=== PATIENT | female | born 1945 | race African-American/Black ===

== ENCOUNTER 2017-11-19 13:47 | Inpatient (IN) | payer MEDICARE, MEDICAID ==
--- NOTE | 2017-11-19 14:44 | RAD ---
CHEST 1 VIEW: Date: 11/19/17 HISTORY: Dyspnea. New onset atrial fibrillation with RVR. FINDINGS: Normal cardiac silhouette. Pulmonary vessels and hilum are normal. Bibasilar pleural and parenchymal changes. No pneumothorax or osseous abnormalities. IMPRESSION: Bibasilar pleural and parenchymal changes. POS: [facility]
[2017-11-19 14:58] LABS: INR-International Normal Ratio 1.8; PTT 25.6 SEC (22.9-36.1); Prothrombin Time 21.8 SEC (12.0-14.7)
[2017-11-19] MEDS ORDERED: Enoxaparin Sodium 60 MG/0.6 ML SYRINGE ONE (15:20)
[2017-11-19 15:21] LABS: ALT (SGPT) 1388 U/L (8-55); AST (SGOT) 1121 U/L (5-34); Albumin 3.7 g/dL (3.4-4.8); Alkaline Phosphatase 119 U/L (40-150); Anion Gap 18 mmol/L (10-20); BUN (Urea Nitrogen) 29 mg/dL (9.8-20.1); Bilirubin, Total 2.2 mg/dL (0.2-1.2); Calc. Creatinine Clearance 0 mL/min (70-130); Calcium 9.4 mg/dL (7.8-10.44); Carbon Dioxide 21 mmol/L (23-31); Chloride 94 mmol/L (98-107); Estimated GFR-MDRD 56; Globulin 2.9 g/dL (2.4-3.5); Glucose 157 mg/dL (83-110); Potassium 3.4 mmol/L (3.5-5.1); Protein, Total 6.6 g/dL (6.0-8.3); Sodium 130 mmol/L (136-145)
[2017-11-19 15:23] LABS: CKMB 5.8 ng/mL (0-6.6); Troponin I 0.159 ng/mL (< 0.028)
[2017-11-19] MEDS ORDERED: Furosemide 40 MG/4 ML VIAL ONE (17:55)
[2017-11-19 19:19] LABS: Troponin I 0.185 ng/mL (< 0.028)
[2017-11-19] MEDS ORDERED: Acetaminophen 325 MG TAB PO PRN (20:32)
[2017-11-19] MEDS ORDERED: Ondansetron ODT 4 MG TAB SL PRN (20:32)
[2017-11-19] MEDS ORDERED: Ondansetron HCl/PF 4 MG/2 ML Vial IVP PRN (20:32)
[2017-11-19 20:35] VITALS: BMI 22.6
[2017-11-19 21:23] LABS: Troponin I 0.184 ng/mL (< 0.028)
[2017-11-20] MEDS: Diltiazem 125 MG in Sodium Chloride 0.9% 100 ML IVPB SCH ×2 (05:54→18:14)
[2017-11-20] MEDS ORDERED: Acetaminophen 325 MG TAB PO PRN (10:17)
[2017-11-20] MEDS ORDERED: Guaifenesin DM 100-10/5 ML UDCUP PO PRN (10:17)
[2017-11-20] MEDS ORDERED: Senokot 8.6 MG TAB PO PRN (10:17)
[2017-11-20] MEDS ORDERED: Enoxaparin Sodium 30 MG/0.3 ML SYRINGE SC SCH (11:00)
[2017-11-20] MEDS: Enoxaparin Sodium 60 MG/0.6 ML SYRINGE SC SCH ×2 (11:03→22:27)
[2017-11-20 12:21] LABS: Hemoglobin A1c 5.4 % (4.0-6.0)
--- NOTE | 2017-11-20 12:36 | HP ---
REASON FOR ADMISSION: New onset atrial fibrillation with RVR, CHF exacerbation , uncontrolled hypertension. HISTORY OF PRESENT ILLNESS: The patient gives history of shortness of breath from last 3 days. She has also been having nausea, vomiting, and could not keep anything down. She developed chest discomfort in the retrosternal area. She initially thought it might be a virus infection or asthma acting up. Finally, this got worse, and patient made it to the emergency room. No prior cardiac workup. No history of asthma or COPD. Has never smoked in her life. Her last annual physical exam was nearly 8 years ago. The patient says she lives alone and ambulates by herself. PAST MEDICAL AND SURGICAL HISTORY: Dyslipidemia, not on any medication; has had a left lobe of her thyroid removed 30 years ago. No prior surgical history. No prior colonoscopy or current bleeding per rectum. CURRENT MEDICATIONS: P.r.n. allergy medications. ALLERGIES: No known drug allergies. PERSONAL HISTORY: Does not abuse alcohol or drugs. No history of smoking. She lives by herself, has 3 children, two daughters and one son. Patient ambulates by herself and lives alone. FAMILY HISTORY: Mother is healthy and lives in [place]. Father in his 50s from a motor vehicle accident. CODE STATUS: FULL. Power of commercial real estate attorney is her daughter, her name is Evie Badillo. REVIEW OF SYSTEMS: The following complete review of systems was negative, unless otherwise mentioned in the HPI or below: Constitutional: Weight loss or gain, ability to conduct usual activities. Skin: Rash, itching. Eyes: Double vision, pain. ENT/Mouth: Nose bleeding, neck stiffness, pain, tenderness. Cardiovascular: Palpitations, dyspnea on exertion, orthopnea. Respiratory: Shortness of breath, wheezing, cough, hemoptysis, fever or night sweats. Gastrointestinal: Poor appetite, abdominal pain, heartburn, nausea, vomiting, constipation, or diarrhea. Genitourinary: Urgency, frequency, dysuria, nocturia. Musculoskeletal: Pain, swelling. Neurologic/Psychiatric: Anxiety, depression. Allergy/Immunologic: Skin rash, bleeding tendency. PHYSICAL EXAMINATION: GENERAL: The patient is a 72-year-old female who is currently not in any acute distress. VITAL SIGNS: Blood pressure 170/117 on arrival, pulse 112 on arrival, respiratory rate 18 per minute, temperature 98.4 degrees Fahrenheit, saturating 95% on room air. NECK: Supple, no elevated JVD. HEENT: Extraocular muscles intact. Pupils reacting to light. Oral cavity mucous membranes are moist. No exudates or congestion. CARDIOVASCULAR SYSTEM: S1, S2 heard. Irregular rhythm. RESPIRATORY SYSTEM: Air entry 1+ bilateral. Scattered rales in the infrascapular area. ABDOMEN: Soft, bowel sounds heard. No tenderness, rigidity or guarding. EXTREMITIES: No peripheral edema or calf tenderness. VASCULAR SYSTEM: Peripheral pulses 1+ bilateral, no ischemic ulcerations or gangrene. CENTRAL NERVOUS SYSTEM: No gross focal deficits seen. Patient is alert, awake , and oriented well. PSYCHIATRIC SYSTEM: The patient's mood is euthymic. No hallucinations or delusions. LABORATORY AND X-RAY FINDINGS: Sodium 130, potassium 3.4, serum bicarbonate 21 , BUN 29, creatinine 1.1, serum glucose 157. PT is 21, INR 1.8, PTT 25. Troponin I 0.15, peaking up to 0.18. CK-MB is 5.8, AST 1121, ALT 1388, total bilirubin 2.2. BNP is 4341. Serum glucose is 157. Chest x-ray done shows pulmonary vascular congestion. EKG done shows atrial fibrillation with RVR going up to 110. There are signs of LVH and T inversions seen in V4, V5, V6. CLINICAL IMPRESSION AND PLAN: The patient will be admitted to telemetry for new onset atrial fibrillation with CHF exacerbation and demand ischemia. Also, patient's LFTs are elevated. It is unclear if this is due to passive congestion from CHF. The patient has no right upper quadrant pain. Nevertheless, we will obtain ultrasound of the liver. Echo with 2D Doppler. She is currently on a Cardizem drip and the her atrial fibrillation is rate controlled in the 80s and we will continue the same. The patient does not take any anticoagulation despite this, her INR is 1.8. We will continue her on Lovenox 50 mg subcu q.12 hours for afib. We will obtain acute hepatitis panel. She will be on Lasix 40 mg IV q.12 hourly. A small dose of Coreg, aspirin, and lisinopril. I have discussed with Dr. Johnson, who will be seeing patient for Cardiology consultation. We will continue to closely monitor her on telemetry. [facility]ITALRaquel
[2017-11-20 12:48] LABS: #Lymphocytes 1.4 thou/uL (1.20-3.40); %Basophils 0.2 % (0.0-1.0); %Eosinophils 0.3 % (0.0-10.0); %Lymphocytes 13.4 % (21.0-51.0); %Monocytes 9.6 % (0.0-10.0); %Neutrophils 76.4 % (42.0-75.0); Hemoglobin 13.8 g/dL (12.0-16.0); Mean Corpuscular Hemoglobin 29.6 pg (27.0-31.0); Mean Corpuscular Volume 89.6 fl (81.0-99.0); Mean Platelet Volume 8.9 fL (7.4-10.4); Platelet Count 211 thou/uL (130-400); RBC Distribution Width 14.4 % (11.5-14.5); Red Blood Cell (RBC) Count 4.65 mill/uL (4.20-5.40); White Blood Cell (WBC) Count 10.5 thou/uL (4.8-10.8)
[2017-11-20 13:31] LABS: HBCM Index 0.04 S/CO (0-0.79); HBSAg Index 0.25 S/CO (0-0.99); Hep A IgM AB Non-Reactive (NonReactive); Hep A IgM S/CO 0.08 S/CO (0-0.79); Hep B Surf Ag Non-Reactive S/CO (NonReactive); Hep C IgG Ab Non-Reactive (NonReactive); Hep C Index 0.07 S/CO (0-0.79); Hepatitis B Core IGM Abs Non-Reactive (NonReactive)
[2017-11-20] MEDS: Furosemide 40 MG/4 ML VIAL SLOW IVP SCH (14:18)
--- NOTE | 2017-11-20 14:46 | CON ---
DATE OF CONSULTATION: 11/20/2017 CARDIOLOGY CONSULTATION REASON FOR CONSULTATION: New onset atrial fibrillation and heart failure. HISTORY OF PRESENT ILLNESS: Ms. Renteria is a very pleasant 72-year-old -[place] female who c omes to the hospital for increased shortness of breath. She was noted for the last 3 days, she has b een increasingly getting more short of breath to the point where she could not breathe yesterday, she felt she was drowning. She came in and was found to be in heart failure and pulmonary edema. She w as also found to be in atrial fibrillation RVR, heart rate in the 120s. She was started on diltiazem drip and rate controlled and given IV Lasix and has diuresed some and is feeling much better today. Currently, she is on room air. Her shortness of breath is much better. Cardiology is being consult ed for further evaluation of her heart failure and her atrial fibrillation. PAST MEDICAL HISTORY: Hyperlipidemia. PAST SURGICAL HISTORY: Left thyroid lobe removal, 30 years ago. OUTPATIENT MEDICATIONS: None. Only p.r.n. over [id number] allergy medications. ALLERGIES: No known drug allergies. SOCIAL HISTORY: No alcohol, tobacco or drugs. Lives with herself. She has 3 kids, 2 daughters and a son. The daughter who lives in [place] is with her today. FAMILY HISTORY: Healthy mother and father in his 50s from a motor vehicle accident. REVIEW OF SYSTEMS: A 12-point review of systems was done and is all negative unless stated in the his tory of present illness. PHYSICAL EXAMINATION: VITAL SIGNS: Temperature 98.0, pulse 74, respiratory rate 14, satting 96% on room air, blood pressur e 143/82. GENERAL: Awake, alert, oriented x3, in no distress. HEENT: Normocephalic, atraumatic. NECK: Supple. LUNGS: Clear. CARDIOVASCULAR: S1, S2, irregularly irregular, heart rate in the low 90s. No murmurs or rubs. ABDOMEN: Soft, positive bowel sounds. EXTREMITIES: 1+ edema. SKIN: Warm and dry. LABORATORY DATA AND IMAGING DATA: Laboratory work was reviewed. CBC with white count of 10, hemoglo bin 13.8, hematocrit 41, platelet count of 211. Coags were reviewed. Chemistry with sodium of 130, potassium 3.4, chloride of 94, carbon dioxide 21, anion gap of 18, BUN 29, creatinine 1.16, GFR 56, g lucose of 157, calcium 9.4, total bilirubin 2.2, AST 1121, and ALT 1388. Troponin was 0.15, 0.18 and 0.18. BNP was 4341. Chest x-ray showed bibasilar pleural and parenchymal changes suggestive of pulmonary edema. ASSESSMENT AND PLAN: 1. Atrial fibrillation with rapid ventricular response: New onset. She has not seen a physician in the last 8 years and in the past it was just for small issues. She has never really followed up wit h anyone. Her CHADS-VASc score at this point because of aged female, history of hypertension, and he art failure is about 4, so she would be a candidate for full anticoagulation. Agree with Lovenox ful l dose at current dosage. We will get an echocardiogram, which is already pending to assess her LV f unction and valvular structures. 2. New onset heart failure: Most likely systolic, suggested by her pulmonary edema and hepatic nain estion. Awaiting echocardiogram for further therapies. 3. Hypertension, better controlled. Continue beta farhat and DAGO inhibitor. 4. Further recommendation depending on results of echocardiogram. Thank you for letting us to participate in the care of this patient.
--- NOTE | 2017-11-20 15:03 | ULT ---
ABDOMINAL ULTRASOUND: HISTORY: Elevated LFTs. FINDINGS: The liver demonstrates a homogeneous echotexture without focal mass or intrahepatic ductal dilatation . The spleen measures 5.7 cm in length. The kidneys and visualized portions of the pancreas, abdomi nal aorta, and IVC appear normal. The common duct measures 3 mm in diameter. There is comet tail ar tifact in the gallbladder with an adjacent mass like area, measuring 1.9 x 1.8 x 1.3 cm. No free flu id is seen. Incidental note is made of bilateral pleural effusions, right greater than left. IMPRESSION: 1. Adenomyomatosis of the gallbladder with findings suspicious for an associated gallbladder mass. A surgical consultation is recommended. 2. Bilateral pleural effusions, right greater than left. CODE T POS: [facility]
[2017-11-20] MEDS: Famotidine 20 MG TAB PO SCH (20:22)
[2017-11-20] MEDS: Carvedilol 3.125 MG TAB PO SCH (20:22)
--- NOTE | 2017-11-21 05:05 | HP ---
HISTORY OF PRESENT ILLNESS: Jana Pelayo 72-year-old black female admitted for chest pain, found to be in AFib, RVR, admitted by hospitalist on telemetry. Her liver chemistries are elevated and then g allbladder ultrasound obtained revealed normal liver texture without abnormalities, normal spleen, pa ncreas, aorta, and IVC with common duct 3 mm. There is some artifact in the gallbladder with adjacen t mass-like area measuring 1.9 x 1.8 x 1.3 cm. No free fluid. There are bilateral pleural effusions , right greater than left. There is adenomyomatosis of the gallbladder with findings suspicious for an associated gallbladder mass. Surgery consult was recommended. Hepatitis serology obtained was ne gative. White count 10, hemoglobin 13.8. Sodium 130, BUN 29, creatinine 1.16. Hemoglobin A1c 5.4. Bilirubin 2.2, AST 1121, ALT 1388, alkaline phosphatase 119. The patient denies any biliary symptoms. She has not had any abdominal pain or biliary symptoms in t he past. BNP is elevated at 4341. Echocardiogram is ordered and pending. She has been anticoagulat ed with Lovenox therapeutically. Cardiology consultation with Dr. Johnson submitted and pending. ALLERGIES: None. TOBACCO: None. ALCOHOL: None. MEDICATIONS: None. PAST SURGICAL HISTORY: Noncontributory. PAST MEDICAL HISTORY: Noncontributory. SOCIAL HISTORY: The patient has never had a colonoscopy. She denies past history of chest pain. Sh stephon is healthy. She lives alone. She is retired from . She has never had a colonoscopy. She re ports a mammogram about 10 years ago. PHYSICAL EXAMINATION: VITAL SIGNS: Height 4 feet, weight 112 pounds, 22 BMI, temperature 97.4 degrees, pulse 78, respirato ry rate 16, and blood pressure 127/64. HEAD, EARS, EYES, NOSE, AND THROAT: Unremarkable. LUNGS: Clear to auscultation. CARDIAC: Irregularly irregular. ABDOMEN: Soft, flat, nondistended, nontender, no masses palpable. EXTREMITIES: Unremarkable. No ankle edema. ASSESSMENT AND PLAN: 1. Elevated liver function tests with negative hepatitis serology and gallbladder ultrasound is norm al without stones, but with adenomyomatosis and suggestive of small mass less than 1.8 cm. Liver fun ction tests were elevated, but common bile duct is not dilated. There are no changes to suggest obst ructive biliary disease. With her elevated BNP and elevated liver function tests, and onset of her m ild upper abdominal discomfort associated with this episode of chest pain, more likely this represent s liver congestion. This is associated with her pulmonary effusion seen on x-ray, and ultrasound sug gests that the liver chemistry elevation is due to liver congestion. Echocardiogram is pending. At this point, no surgical intervention is necessary. I would recommend a CAT scan of the abdomen and p fredo once her renal function normalize. 2. Chronic kidney disease versus acute kidney injury related to her cardiac event. Trend her renal function and consider CAT scan of abdomen and pelvis in the next few days if renal function normalize s and after cardiac evaluation. She probably would benefit from ultrasound of her gallbladder in the next 3 months to follow the changes seen on current ultrasound, if CAT scan does not warrant more ac robinson evaluation. 3. The patient has never had a colonoscopy, recommend screening colonoscopy as an outpatient. 4. The patient is due for screening mammography.
[2017-11-21 05:53] LABS: #Lymphocytes 2.1 thou/uL (1.20-3.40); #Monocytes 1.2 thou/uL (0.11-0.59); #Neutrophils 7.7 thou/uL (1.40-6.50); %Basophils 0.1 % (0.0-1.0); %Eosinophils 0.3 % (0.0-10.0); %Lymphocytes 18.6 % (21.0-51.0); %Monocytes 11.1 % (0.0-10.0); %Neutrophils 69.9 % (42.0-75.0); Hemoglobin 11.9 g/dL (12.0-16.0); Mean Corpuscular HGB CONC 33.1 g/dL (32.0-36.0); Mean Corpuscular Hemoglobin 30.2 pg (27.0-31.0); Mean Platelet Volume 8.3 fL (7.4-10.4); Platelet Count 199 thou/uL (130-400); RBC Distribution Width 14.5 % (11.5-14.5); Red Blood Cell (RBC) Count 3.95 mill/uL (4.20-5.40)
[2017-11-21 06:02] LABS: Anion Gap 10 mmol/L (10-20); BUN (Urea Nitrogen) 20 mg/dL (9.8-20.1); Calc. Creatinine Clearance 48 mL/min (70-130); Calcium 8.1 mg/dL (7.8-10.44); Carbon Dioxide 29 mmol/L (23-31); Chloride 98 mmol/L (98-107); Estimated GFR-MDRD 78; Glucose 138 mg/dL (83-110); Sodium 134 mmol/L (136-145)
[2017-11-21 06:04] LABS: ALT (SGPT) 922 U/L (8-55); AST (SGOT) 341 U/L (5-34); Alkaline Phosphatase 96 U/L (40-150); Bilirubin, Direct 0.8 mg/dL (0.1-0.3); Bilirubin, Total 1.9 mg/dL (0.2-1.2); Protein, Total 5.6 g/dL (6.0-8.3)
[2017-11-21 06:10] LABS: Potassium 2.6 mmol/L (3.5-5.1)
[2017-11-21] MEDS ORDERED: Potassium Chloride 20 MEQ TAB PO SCH ×2 (06:30→19:15)
[2017-11-21] MEDS: Potassium Chloride 20 MEQ in Premix Bag 1 BAG IVPB SCH ×2 (06:32→08:25)
[2017-11-21] MEDS: Diltiazem 125 MG in Sodium Chloride 0.9% 100 ML IVPB SCH (06:32)
[2017-11-21] MEDS: Furosemide 40 MG/4 ML VIAL SLOW IVP SCH ×2 (08:25→15:30)
[2017-11-21] MEDS: Aspirin 325 MG TAB PO SCH (08:25)
[2017-11-21] MEDS: Carvedilol 3.125 MG TAB PO SCH ×2 (08:25→20:12)
[2017-11-21] MEDS: Enoxaparin Sodium 60 MG/0.6 ML SYRINGE SC SCH ×2 (08:26→20:14)
[2017-11-21] MEDS: Lisinopril 2.5 MG TAB PO SCH (08:26)
[2017-11-21 08:55] LABS: INR-International Normal Ratio 1.4; PTT 31.6 SEC (22.9-36.1); Prothrombin Time 17.7 SEC (12.0-14.7)
[2017-11-21 11:12] LABS: Hemoglobin 12.7 g/dL (12.0-16.0); Platelet Count 200 thou/uL (130-400)
--- NOTE | 2017-11-21 13:18 | PDOC.PN ---
- Subjective Encounter Start Date: 11/21/17 Encounter Start Time: 08:15 Subjective: no sob, feels better -: no abd pain or palp or chest pain - Objective Resuscitation Status: Resuscitation Status FULL:Full Resuscitation MAR Reviewed: Yes Vital Signs & Weight: Vital Signs (12 hours) Temp Pulse Resp BP Pulse Ox 11/21/17 11:20 97.6 F 63 16 110/77 95 11/21/17 08:23 97.7 F 61 16 98 11/21/17 08:21 97.7 F 61 16 132/78 98 11/21/17 04:23 97.2 F L 59 L 14 121/85 96 Weight Weight 112 lb I&O: 11/20/17 11/21/17 11/22/17 06:59 06:59 06:59 Intake Total 230 1319 Output Total 1350 1850 Balance -1120 -531 Result Diagrams: 11/21/17 10:44 11/21/17 10:44 Phys Exam - Physical Examination HEENT: PERRLA, moist MMs Neck: no JVD, supple Respiratory: no wheezing, no rales Cardiovascular: no significant murmur, irregular Gastrointestinal: soft, non-tender, no distention, positive bowel sounds Musculoskeletal: no edema, pulses present Neurological: non-focal, moves all 4 limbs Psychiatric: normal affect, A&O x 3 Dx/Plan (1) Acute exacerbation of CHF (congestive heart failure) Code(s): I50.9 - HEART FAILURE, UNSPECIFIED Status: Acute Qualifiers: Heart failure type: systolic Qualified Code(s): I50.23 - Acute on chronic systolic (congestive) heart failure Comment: await echo results (2) Afib Code(s): I48.91 - UNSPECIFIED ATRIAL FIBRILLATION Status: Acute (3) Coagulopathy Status: Acute Comment: unclear etiology is resolving (4) Chronic passive congestion of liver Code(s): K76.1 - CHRONIC PASSIVE CONGESTION OF LIVER Status: Acute Comment: LFT's are trending down with diuresis (5) gall bladder mass Status: Acute (6) HTN (hypertension) Code(s): I10 - ESSENTIAL (PRIMARY) HYPERTENSION Status: Chronic Qualifiers: Hypertension type: essential hypertension Qualified Code(s): I10 - Essential (primary) hypertension (7) Hypokalemia Code(s): E87.6 - HYPOKALEMIA Status: Acute - Plan replace potassium -: gentle iv diuresis, await echo results -: may switch to oral meds and dc cardizem if ok with cardio -: is on asp, coreg, lovenox q12h for afib -: free t3, 4, tsh in am (prior h/o left thyroid lobectomy) * . Review of Systems - Medications/Allergies Allergies/Adverse Reactions: Allergies Allergy/AdvReac Type Severity Reaction Status Date / Time No Allergy Information Allergy Verified 11/19/17 20:34 Available Medications: Current Medications Acetaminophen (Tylenol) 650 mg PO Q4H PRN PRN Reason: Headache/Fever or Pain Aspirin (Aspirin) 325 mg PO DAILY [facility] Last Admin: 11/21/17 08:25 Dose: 325 mg Carvedilol (Coreg) 3.125 mg PO BID [facility] Last Admin: 11/21/17 08:25 Dose: 3.125 mg Enoxaparin Sodium (Lovenox) 50 mg SC Q12HR [facility] Last Admin: 11/21/17 08:26 Dose: 50 mg Famotidine (Pepcid) 20 mg PO Q24HR [facility] Last Admin: 11/20/17 20:22 Dose: 20 mg Furosemide (Lasix) 40 mg SLOW IVP 0600,1400 [facility] Last Admin: 11/21/17 08:25 Dose: Not Given Guaifenesin/Dextromethorphan (Robitussin Dm) 15 ml PO Q4H PRN PRN Reason: Cough Diltiazem HCl 125 mg/ Sodium (Chloride) 125 mls @ 10 mls/hr IVPB INF KONSTANTIN PRN Reason: 10 MG/HR Last Admin: 11/21/17 06:32 Dose: 125 mls Lisinopril (Zestril) 2.5 mg PO DAILY [facility] Last Admin: 11/21/17 08:26 Dose: 2.5 mg Senna (Senokot) 2 tab PO HSPRN PRN PRN Reason: Constipation Last Admin: 11/21/17 08:36 Dose: 2 tab
--- NOTE | 2017-11-21 17:44 | PDOC.CTH ---
Cardiology Progress Note - Subjective Breathing better. No chest pain. Still SOB with exertion. - Objective Vital Signs Temp Pulse Resp BP Pulse Ox 11/21/17 15:20 98.2 F 63 16 103/66 95 11/21/17 11:20 97.6 F 63 16 110/77 95 11/21/17 08:23 97.7 F 61 16 98 11/21/17 08:21 97.7 F 61 16 132/78 98 Weight 112 lb 11/20/17 11/21/17 11/22/17 06:59 06:59 06:59 Intake Total 230 1319 Output Total 1350 1850 Balance -1120 -531 - Physical Examination General/Neuro: alert & oriented x3, NAD Neck: no JVD present Lungs: CTA, unlabored respirations Heart: other: (Irreg) Abdomen: NT/ND Extremities: other: (no edema.) - Telemetry Telemetry Rhythm: Afib HR 80's. - Labs Result Diagrams: 11/21/17 10:44 11/21/17 10:44 Troponin/CKMB CK-MB (CK-2) 5.8 ng/mL (0-6.6) 11/19/17 14:35 Troponin I 0.184 ng/mL (< 0.028) H 11/19/17 20:41 - Assessment/Plan 1. New onset afib 2. New onset dilated CM EF at 15-20% 3. HTN 4. Acute systolic heart faliure 5. Elevated LFT's likely congestion from severe LV dysfunction. 6. Adenomyomatosis of the gallbladder surgery following. PLAN: - Continue IV diuresis - Will stop diltiazem drip and will up titrate BB for rate control. - Full anticoagulation with Lovenox for stroke prophylaxis. - Will need [facility] Thursday to evaluate for ischemic cause.
[2017-11-21] MEDS: Famotidine 20 MG TAB PO SCH (20:12)
[2017-11-22] MEDS: Furosemide 40 MG/4 ML VIAL SLOW IVP SCH ×2 (06:27→13:52)
[2017-11-22 06:31] LABS: INR-International Normal Ratio 1.2; PTT 34.4 SEC (22.9-36.1); Prothrombin Time 15.8 SEC (12.0-14.7)
[2017-11-22 06:36] LABS: #Eosinphils 0.1 thou/uL (0.0-0.7); #Lymphocytes 2.1 thou/uL (1.20-3.40); #Neutrophils 8.4 thou/uL (1.40-6.50); %Basophils 0.3 % (0.0-1.0); %Eosinophils 0.9 % (0.0-10.0); %Lymphocytes 18.3 % (21.0-51.0); %Monocytes 8.9 % (0.0-10.0); %Neutrophils 71.6 % (42.0-75.0); Hemoglobin 12.5 g/dL (12.0-16.0); Mean Corpuscular HGB CONC 32.4 g/dL (32.0-36.0); Mean Corpuscular Hemoglobin 30.1 pg (27.0-31.0); Mean Corpuscular Volume 92.8 fl (81.0-99.0); Mean Platelet Volume 8.6 fL (7.4-10.4); Platelet Count 190 thou/uL (130-400); Red Blood Cell (RBC) Count 4.13 mill/uL (4.20-5.40); White Blood Cell (WBC) Count 11.7 thou/uL (4.8-10.8)
[2017-11-22 06:42] LABS: ALT (SGPT) 778 U/L (8-55); AST (SGOT) 217 U/L (5-34); Albumin 3.1 g/dL (3.4-4.8); Alkaline Phosphatase 90 U/L (40-150); Anion Gap 11 mmol/L (10-20); BUN (Urea Nitrogen) 22 mg/dL (9.8-20.1); Bilirubin, Direct 0.6 mg/dL (0.1-0.3); Bilirubin, Total 1.5 mg/dL (0.2-1.2); Calc. Creatinine Clearance 43 mL/min (70-130); Calcium 8.3 mg/dL (7.8-10.44); Carbon Dioxide 26 mmol/L (23-31); Chloride 100 mmol/L (98-107); Estimated GFR-MDRD 69; Glucose 125 mg/dL (83-110); Protein, Total 5.8 g/dL (6.0-8.3); Sodium 133 mmol/L (136-145)
[2017-11-22 06:53] LABS: Free T4 (Free Thyroxine) 1.49 ng/dL (0.70-1.48); Thyroid Stimulating Hormone 0.2839 uIU/mL (0.35-4.94)
[2017-11-22] MEDS: Lisinopril 2.5 MG TAB PO SCH (08:13)
[2017-11-22] MEDS: Aspirin 325 MG TAB PO SCH (08:13)
[2017-11-22] MEDS: Enoxaparin Sodium 60 MG/0.6 ML SYRINGE SC SCH ×2 (08:14→21:16)
[2017-11-22] MEDS: Carvedilol 3.125 MG TAB PO SCH ×2 (08:14→21:16)
[2017-11-22] MEDS: Potassium Chloride 20 MEQ TAB PO SCH ×2 (08:14→16:23)
--- NOTE | 2017-11-22 12:10 | PDOC.PN ---
- Subjective Encounter Start Date: 11/22/17 Encounter Start Time: 08:00 Pt seen for followup re: acute systolic heart failure. Denies chest pain now, but had pain earlier. No fevers or chills. No nausea or vomiting. - Objective Resuscitation Status: Resuscitation Status FULL:Full Resuscitation MAR Reviewed: Yes Vital Signs & Weight: Vital Signs (12 hours) Temp Pulse Resp BP BP Pulse Ox 11/22/17 08:10 97.5 F L 90 14 140/99 H 96 11/22/17 06:00 98.2 F 92 18 137/96 H 95 11/22/17 04:00 98.2 F 92 20 137/96 H 95 Weight Weight 112 lb I&O: 11/21/17 11/22/17 11/23/17 06:59 06:59 06:59 Intake Total 1319 Output Total 1850 Balance -531 Result Diagrams: 11/22/17 06:02 11/22/17 06:02 EKG Reviewed by me: Yes (Tele: aCassius ibarra) Phys Exam - Physical Examination Constitutional: NAD HEENT: moist MMs, oral pharynx no lesions, 2+ tonsils icterus Neck: no nodes, supple, full ROM JVD Respiratory: no wheezing, no rhonchi Eber crackles Cardiovascular: no rub, irregular S1, S2 Gastrointestinal: soft, non-tender, no distention, positive bowel sounds Neurological: moves all 4 limbs Psychiatric: normal affect, A&O x 3 Dx/Plan (1) Acute systolic ACC/AHA stage C congestive heart failure Code(s): I50.21 - ACUTE SYSTOLIC (CONGESTIVE) HEART FAILURE Status: Acute Comment: Continue IV furosemide for Stage C CHF (2) Hepatic congestion Code(s): K76.1 - CHRONIC PASSIVE CONGESTION OF LIVER Status: Acute Comment: LFTs improving (3) Afib Code(s): I48.91 - UNSPECIFIED ATRIAL FIBRILLATION Status: Acute Comment: Continue Coreg (4) gall bladder mass Status: Acute Comment: General surgery following (5) HTN (hypertension) Code(s): I10 - ESSENTIAL (PRIMARY) HYPERTENSION Status: Chronic Qualifiers: Hypertension type: essential hypertension Qualified Code(s): I10 - Essential (primary) hypertension Comment: Monitor vital signs, titrate antihypertensives as needed (6) Hypokalemia Code(s): E87.6 - HYPOKALEMIA Status: Resolved - Plan * . Plan for cath noted Review of Systems - Review of Systems Constitutional: negative: fever, chills, sweats, weakness, malaise Respiratory: negative: Cough, Shortness of Breath, SOB with Excertion, Pleuritic Pain, Wheezing Cardiovascular: chest pain. negative: palpitations, orthopnea, paroxysmal nocturnal dyspnea, edema, light headedness Gastrointestinal: negative: Nausea, Vomiting, Abdominal Pain, Diarrhea, Constipation, Melena, Hematochezia Genitourinary: negative: Dysuria, Frequency, Incontinence, Hematuria, Retention - Medications/Allergies Allergies/Adverse Reactions: Allergies Allergy/AdvReac Type Severity Reaction Status Date / Time No Allergy Information Allergy Verified 11/19/17 20:34 Available Medications: Current Medications Acetaminophen (Tylenol) 650 mg PO Q4H PRN PRN Reason: Headache/Fever or Pain Aspirin (Aspirin) 325 mg PO DAILY [facility] Last Admin: 11/22/17 08:13 Dose: 325 mg Carvedilol (Coreg) 3.125 mg PO BID [facility] Last Admin: 11/22/17 08:14 Dose: 3.125 mg Enoxaparin Sodium (Lovenox) 50 mg SC Q12HR [facility] Last Admin: 11/22/17 08:14 Dose: 50 mg Famotidine (Pepcid) 20 mg PO Q24HR [facility] Last Admin: 11/21/17 20:12 Dose: 20 mg Furosemide (Lasix) 40 mg SLOW IVP 0600,1400 [facility] Last Admin: 11/22/17 06:27 Dose: 40 mg Guaifenesin/Dextromethorphan (Robitussin Dm) 15 ml PO Q4H PRN PRN Reason: Cough Lisinopril (Zestril) 2.5 mg PO DAILY [facility] Last Admin: 11/22/17 08:13 Dose: 2.5 mg Potassium Chloride (K-Dur) 40 meq PO BID[facility] Last Admin: 11/22/17 08:14 Dose: 40 meq Senna (Senokot) 2 tab PO HSPRN PRN PRN Reason: Constipation Last Admin: 11/21/17 08:36 Dose: 2 tab
--- NOTE | 2017-11-22 16:54 | PDOC.CTH ---
Cardiology Progress Note - Subjective Doing better today. Able to lay flat. No chest pain. SOB only with exertion but better than yesterday. - Objective Vital Signs Temp Pulse Pulse Pulse Resp BP BP 11/22/17 13:43 97 97 113/67 109/71 11/22/17 12:00 97.6 F 90 16 11/22/17 08:10 97.5 F L 90 14 11/22/17 06:00 98.2 F 92 18 BP BP Pulse Ox Pulse Ox Pulse Ox 11/22/17 13:43 93 L 98 11/22/17 12:00 127/80 100 11/22/17 08:10 140/99 H 96 11/22/17 06:00 137/96 H 95 Weight 112 lb 11/21/17 11/22/17 11/23/17 06:59 06:59 06:59 Intake Total 1319 Output Total 1850 Balance -531 - Physical Examination General/Neuro: alert & oriented x3, NAD Neck: no JVD present Lungs: CTA, unlabored respirations Heart: RRR Abdomen: NT/ND Extremities: other: (no edema.) - Telemetry Telemetry Rhythm: Afib HR 100's. - Labs Result Diagrams: 11/22/17 06:02 11/22/17 06:02 Troponin/CKMB CK-MB (CK-2) 5.8 ng/mL (0-6.6) 11/19/17 14:35 Troponin I 0.184 ng/mL (< 0.028) H 11/19/17 20:41 - Assessment/Plan 1. New onset afib 2. New onset dilated CM EF at 15-20% 3. HTN 4. Acute systolic heart faliure 5. Elevated LFT's likely congestion from severe LV dysfunction. 6. Adenomyomatosis of the gallbladder surgery following. PLAN: - Will up titrate BB for rate control. - Full anticoagulation with Lovenox for stroke prophylaxis. - Will need [facility] Thursday to evaluate for ischemic cause. We spoke about risks and benefits and she agrees to proceed.
[2017-11-22] MEDS: Famotidine 20 MG TAB PO SCH (21:16)
[2017-11-23] MEDS: Furosemide 40 MG/4 ML VIAL SLOW IVP SCH ×2 (05:16→13:11)
[2017-11-23] MEDS: Carvedilol 3.125 MG TAB PO SCH (05:17)
[2017-11-23] MEDS: Aspirin 325 MG TAB PO SCH (05:17)
[2017-11-23] MEDS: Lisinopril 2.5 MG TAB PO SCH (05:17)
[2017-11-23 06:17] LABS: ALT (SGPT) 575 U/L (8-55); AST (SGOT) 144 U/L (5-34); Albumin 2.7 g/dL (3.4-4.8); Alkaline Phosphatase 94 U/L (40-150); Bilirubin, Direct 0.5 mg/dL (0.1-0.3); Protein, Total 5.2 g/dL (6.0-8.3)
[2017-11-23] MEDS ORDERED: Heparin 0 ML ONE (06:36)
[2017-11-23] MEDS ORDERED: Lidocaine 1% (PF) 30 ML VIAL ONE ×2 (06:36→11:17)
[2017-11-23] MEDS ORDERED: Iopamidol 370 76% 100 ML VIAL ONE (06:48)
[2017-11-23] MEDS ORDERED: Metoprolol Tartrate 5 MG/5 ML VIAL ONE (12:13)
--- NOTE | 2017-11-23 13:03 | PDOC.PN ---
- Subjective Encounter Start Date: 11/23/17 Encounter Start Time: 09:00 Pt seen for followup re: acute on chronic systolic CHF. Denies chest pain, shortness of breath, fevers or chills. - Objective Resuscitation Status: Resuscitation Status FULL:Full Resuscitation MAR Reviewed: Yes Vital Signs & Weight: Vital Signs (12 hours) Temp Pulse Pulse Pulse Resp BP BP 11/23/17 10:00 126 H 122 H 155/100 H 11/23/17 07:20 97.9 F 108 H 16 11/23/17 05:17 103 H 110/76 11/23/17 04:00 97.9 F 103 H 16 BP BP Pulse Ox Pulse Ox Pulse Ox 11/23/17 10:00 123/92 H 98 97 11/23/17 07:20 129/88 97 11/23/17 05:17 11/23/17 04:00 110/76 Weight Weight 112 lb I&O: 11/22/17 11/23/17 11/24/17 06:59 06:59 06:59 Intake Total 960 Output Total 2600 Balance -1640 Result Diagrams: 11/25/17 04:06 11/25/17 04:06 EKG Reviewed by me: Yes (Tele: a. stacey) Phys Exam - Physical Examination Constitutional: NAD HEENT: PERRLA, moist MMs, sclera anicteric, oral pharynx no lesions Neck: no nodes, no JVD, supple, full ROM Respiratory: no wheezing, no rhonchi Eber crackles Cardiovascular: no rub, irregular S1, S2 Gastrointestinal: soft, non-tender, no distention, positive bowel sounds Neurological: moves all 4 limbs Psychiatric: normal affect, A&O x 3 Dx/Plan (1) Acute systolic ACC/AHA stage C congestive heart failure Code(s): I50.21 - ACUTE SYSTOLIC (CONGESTIVE) HEART FAILURE Status: Acute Comment: On IV furosemide 40 mg daily (Stage C CHF), improving (2) Hepatic congestion Code(s): K76.1 - CHRONIC PASSIVE CONGESTION OF LIVER Status: Acute Comment: LFTs improving (3) Afib Code(s): I48.91 - UNSPECIFIED ATRIAL FIBRILLATION Status: Acute Comment: For FANG and cardioversion today (4) gall bladder mass Status: Acute Comment: General surgery following, plan for surgery as outpatient (5) HTN (hypertension) Code(s): I10 - ESSENTIAL (PRIMARY) HYPERTENSION Status: Chronic Qualifiers: Hypertension type: essential hypertension Qualified Code(s): I10 - Essential (primary) hypertension Comment: titrate antihypertensives as needed (6) Hyperthyroidism Code(s): E05.90 - THYROTOXICOSIS, UNSP WITHOUT THYROTOXIC CRISIS OR STORM Status: Chronic Comment: PCP reportedly monitoring thyroid profile frequently. (7) Hypokalemia Code(s): E87.6 - HYPOKALEMIA Status: Resolved - Plan * . Pt had cardiac cath yesterday, minimal CAD. Review of Systems - Review of Systems Constitutional: negative: fever, chills, sweats, weakness, malaise Respiratory: negative: Cough, Shortness of Breath, SOB with Excertion, Pleuritic Pain, Wheezing Cardiovascular: negative: chest pain, palpitations, orthopnea, paroxysmal nocturnal dyspnea, edema, light headedness Gastrointestinal: negative: Nausea, Vomiting, Abdominal Pain, Diarrhea, Constipation, Melena, Hematochezia Skin: negative: Rash, Lesions, Ace, Bruising - Medications/Allergies Allergies/Adverse Reactions: Allergies Allergy/AdvReac Type Severity Reaction Status Date / Time No Allergy Information Allergy Verified 11/19/17 20:34 Available Medications: Current Medications Acetaminophen (Tylenol) 650 mg PO Q4H PRN PRN Reason: Headache/Fever or Pain Aspirin (Aspirin) 325 mg PO DAILY [facility] Last Admin: 11/23/17 05:17 Dose: 325 mg Carvedilol (Coreg) 6.25 mg PO BID [facility] Last Admin: 11/23/17 05:17 Dose: 6.25 mg Enoxaparin Sodium (Lovenox) 50 mg SC Q12HR [facility] Last Admin: 11/22/17 21:16 Dose: 50 mg Famotidine (Pepcid) 20 mg PO Q24HR [facility] Last Admin: 11/22/17 21:16 Dose: 20 mg Furosemide (Lasix) 40 mg SLOW IVP 0600,1400 [facility] Last Admin: 11/23/17 05:16 Dose: Not Given Guaifenesin/Dextromethorphan (Robitussin Dm) 15 ml PO Q4H PRN PRN Reason: Cough Lisinopril (Zestril) 2.5 mg PO DAILY [facility] Last Admin: 11/23/17 05:17 Dose: 2.5 mg Potassium Chloride (K-Dur) 40 meq PO BID-[facility] Last Admin: 11/22/17 16:23 Dose: 40 meq Senna (Senokot) 2 tab PO HSPRN PRN PRN Reason: Constipation Last Admin: 11/21/17 08:36 Dose: 2 tab
[2017-11-23] MEDS: Potassium Chloride 20 MEQ TAB PO SCH ×2 (13:11→17:43)
[2017-11-23] MEDS ORDERED: traMADol HCl 50 MG TAB PO PRN (13:26)
[2017-11-23] MEDS ORDERED: Acetaminophen/Codeine 30-300mg Tablet PO PRN (13:26)
[2017-11-23] MEDS: Sodium Chloride 0.9% 1,000 ML IV SCH ×2 (15:29→17:47)
[2017-11-23] MEDS ORDERED: Amiodarone In Dextrose 200 ML IVPB SCH (15:30)
[2017-11-23] MEDS: Amiodarone HCl 450 MG, Admixture Fee 1 EACH in Dextrose 5% in Water 250 ML IVPB SCH (16:06)
[2017-11-23] MEDS: Famotidine 20 MG TAB PO SCH (22:07)
[2017-11-23] MEDS: Carvedilol 6.25 MG TAB PO SCH (22:07)
[2017-11-24] MEDS: Amiodarone HCl 450 MG, Admixture Fee 1 EACH in Dextrose 5% in Water 250 ML IVPB SCH ×2 (00:38→13:50)
[2017-11-24] MEDS: Furosemide 40 MG/4 ML VIAL SLOW IVP SCH ×2 (06:02→13:50)
[2017-11-24] MEDS: Enoxaparin Sodium 60 MG/0.6 ML SYRINGE SC SCH ×2 (10:23→20:29)
[2017-11-24] MEDS: Potassium Chloride 20 MEQ TAB PO SCH ×2 (10:24→17:30)
[2017-11-24] MEDS: Aspirin 325 MG TAB PO SCH (10:24)
[2017-11-24] MEDS: Lisinopril 5 MG TAB PO SCH (10:25)
[2017-11-24] MEDS: Carvedilol 6.25 MG TAB PO SCH ×2 (10:25→20:28)
--- NOTE | 2017-11-24 12:25 | PDOC.PN ---
- Subjective Encounter Start Date: 11/24/17 Encounter Start Time: 08:00 Pt seen for followup re: atrial fibrillation. Denies chest pain, shortness of breath, fevers or chills. - Objective Resuscitation Status: Resuscitation Status FULL:Full Resuscitation MAR Reviewed: Yes Vital Signs & Weight: Vital Signs (12 hours) Temp Pulse Resp BP BP Pulse Ox 11/24/17 10:25 95 119/76 11/24/17 07:30 97.6 F 95 18 115/89 95 11/24/17 04:00 111 H 22 H 112/92 H Weight Weight 109 lb I&O: 11/23/17 11/24/17 11/25/17 06:59 06:59 06:59 Intake Total 960 1376 Output Total 2600 2500 Balance -1640 -1124 Result Diagrams: 11/22/17 06:02 11/22/17 06:02 EKG Reviewed by me: Yes (Tele: kena ibarra) Phys Exam - Physical Examination Constitutional: NAD HEENT: moist MMs Neck: supple Respiratory: clear to auscultation bilateral Cardiovascular: irregular Gastrointestinal: soft Neurological: moves all 4 limbs Psychiatric: normal affect Dx/Plan (1) Acute systolic ACC/AHA stage C congestive heart failure Code(s): I50.21 - ACUTE SYSTOLIC (CONGESTIVE) HEART FAILURE Status: Acute Comment: Continue IV furosemide (Stage C CHF) (2) Hepatic congestion Code(s): K76.1 - CHRONIC PASSIVE CONGESTION OF LIVER Status: Acute Comment: Monitor LFTs, improving so far (3) Afib Code(s): I48.91 - UNSPECIFIED ATRIAL FIBRILLATION Status: Acute Comment: Rate-controlled, continue Coreg (4) gall bladder mass Status: Acute Comment: General surgery following, plan for re-imagingas outpatient (5) HTN (hypertension) Code(s): I10 - ESSENTIAL (PRIMARY) HYPERTENSION Status: Chronic Qualifiers: Hypertension type: essential hypertension Qualified Code(s): I10 - Essential (primary) hypertension Comment: titrate antihypertensives as needed (6) Hyperthyroidism Code(s): E05.90 - THYROTOXICOSIS, UNSP WITHOUT THYROTOXIC CRISIS OR STORM Status: Chronic Comment: Pt reports she will followup with PCP re: management. PCP reportedly monitoring thyroid profile frequently. (7) Hypokalemia Code(s): E87.6 - HYPOKALEMIA Status: Resolved - Plan * . Review of Systems - Review of Systems Respiratory: negative: Cough, Dry, Shortness of Breath, Hemoptysis, SOB with Excertion, Pleuritic Pain, Sputum, Wheezing Cardiovascular: negative: chest pain, palpitations, orthopnea, paroxysmal nocturnal dyspnea, edema, light headedness - Medications/Allergies Allergies/Adverse Reactions: Allergies Allergy/AdvReac Type Severity Reaction Status Date / Time No Allergy Information Allergy Verified 11/19/17 20:34 Available Medications: Current Medications Acetaminophen (Tylenol) 650 mg PO Q4H PRN PRN Reason: Headache/Fever or Pain Acetaminophen/Codeine Phosphate (Tylenol #3) 1 tab PO Q4H PRN PRN Reason: Mild Pain (1-3) Aspirin (Aspirin) 325 mg PO DAILY [facility] Last Admin: 11/24/17 10:24 Dose: 325 mg Carvedilol (Coreg) 12.5 mg PO BID [facility] Last Admin: 11/24/17 10:25 Dose: 12.5 mg Enoxaparin Sodium (Lovenox) 50 mg SC Q12HR [facility] Last Admin: 11/24/17 10:23 Dose: 50 mg Famotidine (Pepcid) 20 mg PO Q24HR [facility] Last Admin: 11/23/17 22:07 Dose: 20 mg Furosemide (Lasix) 40 mg SLOW IVP 0600,1400 [facility] Last Admin: 11/24/17 06:02 Dose: 40 mg Guaifenesin/Dextromethorphan (Robitussin Dm) 15 ml PO Q4H PRN PRN Reason: Cough Amiodarone HCl 450 mg/Miscellaneous Medication 1 each/ Dextrose/Water 259 mls @ 0 mls/hr IVPB INF [facility]; As Directed PRN Reason: Protocol Last Admin: 11/24/17 00:38 Dose: 259 mls Lisinopril (Zestril) 5 mg PO DAILY [facility] Last Admin: 11/24/17 10:25 Dose: 5 mg Potassium Chloride (K-Dur) 40 meq PO BID-[facility] Last Admin: 11/24/17 10:24 Dose: 40 meq Senna (Senokot) 2 tab PO HSPRN PRN PRN Reason: Constipation Last Admin: 11/21/17 08:36 Dose: 2 tab Tramadol HCl (Ultram) 50 mg PO Q6H PRN PRN Reason: Moderate Pain (4-6) Last Admin: 11/23/17 22:07 Dose: 50 mg
--- NOTE | 2017-11-24 18:40 | PDOC.CTH ---
Cardiology Progress Note - Subjective She is doing well. Her right groin is without issues. She continues to feel SOB with minimal exertion. - Objective Vital Signs Temp Pulse Pulse Pulse Resp BP BP 11/24/17 16:15 97.7 F 95 22 H 11/24/17 12:15 92 20 11/24/17 11:37 105 H 99 127/100 H 11/24/17 10:25 95 119/76 11/24/17 07:30 97.6 F 92 20 BP BP Pulse Ox Pulse Ox Pulse Ox 11/24/17 16:15 97/65 97 11/24/17 12:15 130/99 H 11/24/17 11:37 128/94 H 98 99 11/24/17 10:25 11/24/17 07:30 115/89 95 Weight 109 lb 11/23/17 11/24/17 11/25/17 06:59 06:59 06:59 Intake Total 960 1376 Output Total 2600 2500 Balance -1640 -1124 - Physical Examination General/Neuro: alert & oriented x3, NAD Neck: no JVD present Lungs: unlabored respirations Heart: other: (Irreg) Abdomen: NT/ND Extremities: other: (no edema) - Telemetry Telemetry Rhythm: Afib HR 90-110 - Labs Result Diagrams: 11/22/17 06:02 11/22/17 06:02 Troponin/CKMB CK-MB (CK-2) 5.8 ng/mL (0-6.6) 11/19/17 14:35 Troponin I 0.184 ng/mL (< 0.028) H 11/19/17 20:41 - Assessment/Plan 1. New onset afib, in RVR 2. New onset dilated CM EF at 15-20% 3. HTN 4. Acute systolic heart failure, improved. 5. Elevated LFT's likely congestion from severe LV dysfunction. 6. Adenomyomatosis of the gallbladder. PLAN: - Difficult to rate control. Rocky plan on rhythm control. - FANG/Cardioversion tomorrow. - Full anticoagulation with Lovenox for stroke prophylaxis. - We spoke about risks and benefits of procedure and she agrees to proceed.
[2017-11-24] MEDS: Famotidine 20 MG TAB PO SCH (20:28)
[2017-11-25] MEDS: Amiodarone HCl 450 MG, Admixture Fee 1 EACH in Dextrose 5% in Water 250 ML IVPB SCH (04:19)
[2017-11-25 05:14] LABS: #Basophils 0.1 thou/uL (0.0-0.2); #Eosinphils 0.1 thou/uL (0.0-0.7); #Lymphocytes 1.5 thou/uL (1.20-3.40); %Basophils 0.5 % (0.0-1.0); %Eosinophils 1.1 % (0.0-10.0); %Lymphocytes 15.4 % (21.0-51.0); %Monocytes 10.1 % (0.0-10.0); %Neutrophils 72.9 % (42.0-75.0); Hemoglobin 11.5 g/dL (12.0-16.0); Mean Corpuscular HGB CONC 31.7 g/dL (32.0-36.0); Mean Corpuscular Hemoglobin 29.7 pg (27.0-31.0); Mean Corpuscular Volume 93.7 fl (81.0-99.0); Mean Platelet Volume 8.9 fL (7.4-10.4); Platelet Count 196 thou/uL (130-400); RBC Distribution Width 14.8 % (11.5-14.5); Red Blood Cell (RBC) Count 3.87 mill/uL (4.20-5.40); White Blood Cell (WBC) Count 9.5 thou/uL (4.8-10.8)
[2017-11-25 05:21] LABS: Platelet Count 189 thou/uL (130-400)
[2017-11-25] MEDS: Furosemide 40 MG/4 ML VIAL SLOW IVP SCH ×2 (05:24→15:54)
[2017-11-25 05:53] LABS: ALT (SGPT) 409 U/L (8-55); AST (SGOT) 87 U/L (5-34); Albumin 2.9 g/dL (3.4-4.8); Alkaline Phosphatase 84 U/L (40-150); Anion Gap 15 mmol/L (10-20); BUN (Urea Nitrogen) 29 mg/dL (9.8-20.1); Bilirubin, Total 1.2 mg/dL (0.2-1.2); Calc. Creatinine Clearance 33 mL/min (70-130); Calcium 8.3 mg/dL (7.8-10.44); Carbon Dioxide 21 mmol/L (23-31); Chloride 102 mmol/L (98-107); Estimated GFR-MDRD 48; Globulin 2.7 g/dL (2.4-3.5); Glucose 149 mg/dL (83-110); Potassium 5.9 mmol/L (3.5-5.1); Protein, Total 5.6 g/dL (6.0-8.3); Sodium 132 mmol/L (136-145)
--- NOTE | 2017-11-25 08:36 | PRG ---
DATE OF SERVICE: 11/25/2017 Jana Renteria is doing well today. She reminds me that she lives in [place] and will be going to [place] and her healthcare will be resumed there. She will have to find a ship construction teacher and surgeon there. She had an abdominal ultrasound demonstrating a gallbladder polyp 1.9 x 1.8 cm. She is in need of a laparoscopic cholecystectomy because of the increased risk of malignancy. This cholecystectomy coul d be done at a later time. She is currently anticoagulated. She has an echocardiogram 11/21/2017 re veals ejection fraction of 15-20%. Cardiac catheterization does not reveal any significant coronary ischemia. Her cardiomyopathy will probably improve with good control of her hypertension and resolut ion of her atrial fibrillation. Once she is off of anticoagulation in 1-3 months she should have a l aparoscopic cholecystectomy. She can follow up with me for that or follow up with her surgeon in the [place] area where she will be moving to, to have that done. At this point, I will see her as needed . Please call if necessary.
[2017-11-25] MEDS: Potassium Chloride 20 MEQ TAB PO SCH ×2 (09:22→16:00)
[2017-11-25] MEDS: Carvedilol 6.25 MG TAB PO SCH ×2 (09:22→20:38)
[2017-11-25] MEDS: Lisinopril 5 MG TAB PO SCH (09:22)
[2017-11-25] MEDS: Aspirin 325 MG TAB PO SCH (09:23)
[2017-11-25] MEDS: Enoxaparin Sodium 60 MG/0.6 ML SYRINGE SC SCH ×2 (09:23→20:38)
--- NOTE | 2017-11-25 11:31 | PDOC.PN ---
- Subjective Encounter Start Date: 11/25/17 Encounter Start Time: 08:00 Pt seen for followup re: CHF exacerbation. Says she feels better. - Objective Resuscitation Status: Resuscitation Status FULL:Full Resuscitation MAR Reviewed: Yes Vital Signs & Weight: Vital Signs (12 hours) Temp Pulse Resp BP BP BP Pulse Ox 11/25/17 09:22 107 H 129/86 11/25/17 07:25 97.4 F L 106 H 18 129/89 96 11/25/17 04:00 97.6 F 96 20 112/87 99 Weight Weight 117 lb 2 oz I&O: 11/24/17 11/25/17 11/26/17 06:59 06:59 06:59 Intake Total 1376 Output Total 2500 Balance -1124 Result Diagrams: 11/25/17 04:06 11/25/17 04:06 EKG Reviewed by me: Yes (Tele: kena ibarra) Phys Exam - Physical Examination Constitutional: NAD HEENT: moist MMs Neck: supple Respiratory: clear to auscultation bilateral Cardiovascular: irregular Gastrointestinal: soft Musculoskeletal: pulses present Neurological: moves all 4 limbs Psychiatric: normal affect Dx/Plan (1) Acute systolic ACC/AHA stage C congestive heart failure Code(s): I50.21 - ACUTE SYSTOLIC (CONGESTIVE) HEART FAILURE Status: Acute Comment: On IV furosemide 40 mg daily (Stage C CHF), improving (2) Hepatic congestion Code(s): K76.1 - CHRONIC PASSIVE CONGESTION OF LIVER Status: Acute Comment: LFTs improving (3) Afib Code(s): I48.91 - UNSPECIFIED ATRIAL FIBRILLATION Status: Acute Comment: For FANG and cardioversion today (4) gall bladder mass Status: Acute Comment: General surgery following, plan for surgery as outpatient (5) HTN (hypertension) Code(s): I10 - ESSENTIAL (PRIMARY) HYPERTENSION Status: Chronic Qualifiers: Hypertension type: essential hypertension Qualified Code(s): I10 - Essential (primary) hypertension Comment: titrate antihypertensives as needed (6) Hyperthyroidism Code(s): E05.90 - THYROTOXICOSIS, UNSP WITHOUT THYROTOXIC CRISIS OR STORM Status: Chronic Comment: PCP reportedly monitoring thyroid profile frequently. (7) NICM (nonischemic cardiomyopathy) Code(s): I42.8 - OTHER CARDIOMYOPATHIES Status: Chronic Comment: Cath unremarkable. Continue beta farhat, ACEI. (8) Hypokalemia Code(s): E87.6 - HYPOKALEMIA Status: Resolved - Plan * . Review of Systems - Review of Systems Respiratory: negative: Cough, Shortness of Breath, SOB with Excertion, Pleuritic Pain, Wheezing Cardiovascular: negative: chest pain, palpitations, orthopnea, paroxysmal nocturnal dyspnea, edema, light headedness - Medications/Allergies Allergies/Adverse Reactions: Allergies Allergy/AdvReac Type Severity Reaction Status Date / Time No Allergy Information Allergy Verified 11/19/17 20:34 Available Medications: Current Medications Acetaminophen (Tylenol) 650 mg PO Q4H PRN PRN Reason: Headache/Fever or Pain Acetaminophen/Codeine Phosphate (Tylenol #3) 1 tab PO Q4H PRN PRN Reason: Mild Pain (1-3) Aspirin (Aspirin) 325 mg PO DAILY [facility] Last Admin: 11/25/17 09:23 Dose: 325 mg Carvedilol (Coreg) 12.5 mg PO BID [facility] Last Admin: 11/25/17 09:22 Dose: 12.5 mg Enoxaparin Sodium (Lovenox) 50 mg SC Q12HR [facility] Last Admin: 11/25/17 09:23 Dose: 50 mg Famotidine (Pepcid) 20 mg PO Q24HR [facility] Last Admin: 11/24/17 20:28 Dose: 20 mg Furosemide (Lasix) 40 mg SLOW IVP 0600,1400 [facility] Last Admin: 11/25/17 05:24 Dose: 40 mg Guaifenesin/Dextromethorphan (Robitussin Dm) 15 ml PO Q4H PRN PRN Reason: Cough Amiodarone HCl 450 mg/Miscellaneous Medication 1 each/ Dextrose/Water 259 mls @ 0 mls/hr IVPB INF [facility]; As Directed PRN Reason: Protocol Last Admin: 11/25/17 04:19 Dose: 259 mls Lisinopril (Zestril) 5 mg PO DAILY [facility] Last Admin: 11/25/17 09:22 Dose: 5 mg Potassium Chloride (K-Dur) 40 meq PO BID-[facility] Last Admin: 11/25/17 09:22 Dose: 40 meq Senna (Senokot) 2 tab PO HSPRN PRN PRN Reason: Constipation Last Admin: 11/21/17 08:36 Dose: 2 tab Tramadol HCl (Ultram) 50 mg PO Q6H PRN PRN Reason: Moderate Pain (4-6) Last Admin: 11/23/17 22:07 Dose: 50 mg
[2017-11-25] MEDS ORDERED: PROPOFOL 20 ML ONE (11:51)
[2017-11-25] MEDS ORDERED: PROPOFOL 200 MG/20 ML VIAL ONE (14:49)
[2017-11-25] MEDS: Famotidine 20 MG TAB PO SCH (20:37)
[2017-11-25] MEDS: Amiodarone 200 MG TAB PO SCH (20:37)
--- NOTE | 2017-11-25 23:10 | ECHO ---
DATE OF SERVICE: 12/05/2017. PREPROCEDURE DIAGNOSIS: Atrial fibrillation. The transesophageal echo was planned for set up for cardioversion. The Anesthesiology Department prov ided sedation for the patient. Please see their notes for details. After adequate sedation was achieved, transesophageal probe was inserted into the mouth and into the esophagus and multiplanar views were then obtained. Left ventricle is dilated with severely reduced LV systolic function, EF at 10-15%. Right ventricle is dilated. Right atrium is dilated. Left atrium is dilated, left atrial appendage is large with severely reduced velocities. No evidence of mass or thrombus. Interatrial septum appears to be intact with a small amount of fluid in between the septum. Mitral valve has mitral annular calcification with moderate MR, no stenosis. Tricuspid valve is structurally normal. There is moderate TR. Aortic valve has three cusps, no stenosis or regurgitation. Pulmonary valve is not well seen. CONCLUSIONS: 1. Severely reduced LV systolic function, EF of 10-15% with dilated left ventricle. 2. Dilated right ventricle. 3. Biatrial enlargement. 4. Large left atrial appendage with severely reduced velocities but no evidence of mass or thrombus. 5. Small pericardial effusion without tamponade physiology. 6. Aortic root is normal size.
--- NOTE | 2017-11-25 23:14 | OP ---
DATE OF SERVICE 11/25/2017. PROCEDURES PERFORMED: Direct current cardioversion synchronized. SUMMARY: The patient is a pleasant 72-year-old -[place] female who comes to the outpatient area for pl anned cardioversion. She had a FANG that ruled out any thrombus. The Anesthesia department provided with sedation for the patient. Please see their notes for details. After transesophageal probe had ruled her out for thrombus and she was well sedated, a single 50 joule synchronized cardioversion anamaria ck was delivered successfully converting her from atrial fibrillation to sinus bradycardia. Blood pr essure remained well. She tolerated the procedure well. Continue current medications. We will cut back on the beta farhat given her bradycardia.
[2017-11-26 04:56] LABS: #Basophils 0.1 thou/uL (0.0-0.2); #Eosinphils 0.1 thou/uL (0.0-0.7); #Lymphocytes 1.7 thou/uL (1.20-3.40); #Monocytes 1.3 thou/uL (0.11-0.59); #Neutrophils 5.7 thou/uL (1.40-6.50); %Basophils 0.9 % (0.0-1.0); %Eosinophils 0.8 % (0.0-10.0); %Lymphocytes 18.9 % (21.0-51.0); %Monocytes 14.4 % (0.0-10.0); %Neutrophils 64.9 % (42.0-75.0); Hemoglobin 11.4 g/dL (12.0-16.0); Mean Corpuscular HGB CONC 32.6 g/dL (32.0-36.0); Mean Corpuscular Hemoglobin 30.6 pg (27.0-31.0); Mean Corpuscular Volume 94.1 fl (81.0-99.0); Mean Platelet Volume 8.6 fL (7.4-10.4); Platelet Count 194 thou/uL (130-400); RBC Distribution Width 14.9 % (11.5-14.5); Red Blood Cell (RBC) Count 3.72 mill/uL (4.20-5.40); White Blood Cell (WBC) Count 8.7 thou/uL (4.8-10.8)
[2017-11-26] MEDS ORDERED: Sodium Chloride 0.9% 10 ML ONE (05:07)
[2017-11-26 05:21] LABS: ALT (SGPT) 296 U/L (8-55); AST (SGOT) 46 U/L (5-34); Albumin 2.7 g/dL (3.4-4.8); Alkaline Phosphatase 74 U/L (40-150); Anion Gap 8 mmol/L (10-20); BUN (Urea Nitrogen) 27 mg/dL (9.8-20.1); Calc. Creatinine Clearance 33 mL/min (70-130); Calcium 8.1 mg/dL (7.8-10.44); Carbon Dioxide 23 mmol/L (23-31); Chloride 107 mmol/L (98-107); Estimated GFR-MDRD 51; Globulin 2.7 g/dL (2.4-3.5); Glucose 115 mg/dL (83-110); Potassium 5.4 mmol/L (3.5-5.1); Protein, Total 5.4 g/dL (6.0-8.3); Sodium 133 mmol/L (136-145)
[2017-11-26] MEDS: Furosemide 40 MG/4 ML VIAL SLOW IVP SCH ×2 (06:19→14:23)
[2017-11-26] MEDS: Potassium Chloride 20 MEQ TAB PO SCH ×2 (07:54→16:53)
[2017-11-26] MEDS: Enoxaparin Sodium 60 MG/0.6 ML SYRINGE SC SCH (09:07)
[2017-11-26] MEDS: Amiodarone 200 MG TAB PO SCH ×2 (09:07→21:10)
[2017-11-26] MEDS: Aspirin 325 MG TAB PO SCH (09:07)
[2017-11-26] MEDS: Lisinopril 5 MG TAB PO SCH (09:08)
[2017-11-26] MEDS: Carvedilol 6.25 MG TAB PO SCH ×2 (09:13→21:10)
--- NOTE | 2017-11-26 11:09 | PDOC.PN ---
- Subjective Encounter Start Date: 11/26/17 Encounter Start Time: 08:00 Pt seen for followup re: congestive heart failure. Feels well, no complaints. - Objective Resuscitation Status: Resuscitation Status FULL:Full Resuscitation MAR Reviewed: Yes Vital Signs & Weight: Vital Signs (12 hours) Temp Pulse Resp BP BP Pulse Ox 11/26/17 07:46 98.1 F 58 L 20 148/82 H 97 11/26/17 04:00 98.3 F 55 L 17 116/63 98 11/26/17 00:00 98.8 F 54 L 17 107/60 98 Weight Weight 112 lb 4 oz I&O: 11/25/17 11/26/17 11/27/17 06:59 06:59 06:59 Intake Total 1014 Output Total 2750 Balance -1736 Result Diagrams: 11/26/17 04:20 11/26/17 04:20 EKG Reviewed by me: Yes (Tele: sinus bradycardia) Phys Exam - Physical Examination Constitutional: NAD HEENT: moist MMs Neck: supple Respiratory: clear to auscultation bilateral S1, S2, reg, dewey Gastrointestinal: soft Neurological: moves all 4 limbs Psychiatric: normal affect Dx/Plan (1) Acute systolic ACC/AHA stage C congestive heart failure Code(s): I50.21 - ACUTE SYSTOLIC (CONGESTIVE) HEART FAILURE Status: Acute Comment: Continue IV lasix (2) Hepatic congestion Code(s): K76.1 - CHRONIC PASSIVE CONGESTION OF LIVER Status: Acute Comment: LFTs improving (3) Afib Code(s): I48.91 - UNSPECIFIED ATRIAL FIBRILLATION Status: Acute Comment: Had FANG and cardioversion yesterday, now in sinus bradycardia. Mi farhat on hold at this time. (4) gall bladder mass Status: Acute Comment: plan for surgery as outpatient (5) HTN (hypertension) Code(s): I10 - ESSENTIAL (PRIMARY) HYPERTENSION Status: Chronic Qualifiers: Hypertension type: essential hypertension Qualified Code(s): I10 - Essential (primary) hypertension Comment: titrate antihypertensives as needed (6) Hyperthyroidism Code(s): E05.90 - THYROTOXICOSIS, UNSP WITHOUT THYROTOXIC CRISIS OR STORM Status: Chronic Comment: PCP reportedly monitoring thyroid profile frequently. (7) Hypokalemia Code(s): E87.6 - HYPOKALEMIA Status: Resolved - Plan * . Review of Systems - Review of Systems Respiratory: negative: Cough, Shortness of Breath, SOB with Excertion, Pleuritic Pain, Wheezing Cardiovascular: negative: chest pain, palpitations, orthopnea, paroxysmal nocturnal dyspnea, edema, light headedness - Medications/Allergies Allergies/Adverse Reactions: Allergies Allergy/AdvReac Type Severity Reaction Status Date / Time No Allergy Information Allergy Verified 11/19/17 20:34 Available Medications: Current Medications Acetaminophen (Tylenol) 650 mg PO Q4H PRN PRN Reason: Headache/Fever or Pain Last Admin: 11/25/17 18:36 Dose: 650 mg Acetaminophen/Codeine Phosphate (Tylenol #3) 1 tab PO Q4H PRN PRN Reason: Mild Pain (1-3) Amiodarone HCl (Cordarone) 200 mg PO BID [facility] Last Admin: 11/26/17 09:07 Dose: 200 mg Aspirin (Aspirin) 325 mg PO DAILY [facility] Last Admin: 11/26/17 09:07 Dose: 325 mg Carvedilol (Coreg) 12.5 mg PO BID [facility] Last Admin: 11/26/17 09:13 Dose: Not Given Enoxaparin Sodium (Lovenox) 50 mg SC Q12HR [facility] Last Admin: 11/26/17 09:07 Dose: 50 mg Famotidine (Pepcid) 20 mg PO Q24HR [facility] Last Admin: 11/25/17 20:37 Dose: 20 mg Furosemide (Lasix) 40 mg SLOW IVP 0600,1400 [facility] Last Admin: 11/26/17 06:19 Dose: 40 mg Guaifenesin/Dextromethorphan (Robitussin Dm) 15 ml PO Q4H PRN PRN Reason: Cough Lisinopril (Zestril) 5 mg PO DAILY [facility] Last Admin: 11/26/17 09:08 Dose: 5 mg Potassium Chloride (K-Dur) 40 meq PO BID-[facility] Last Admin: 11/26/17 07:54 Dose: 40 meq Senna (Senokot) 2 tab PO HSPRN PRN PRN Reason: Constipation Last Admin: 11/21/17 08:36 Dose: 2 tab Tramadol HCl (Ultram) 50 mg PO Q6H PRN PRN Reason: Moderate Pain (4-6) Last Admin: 11/23/17 22:07 Dose: 50 mg
--- NOTE | 2017-11-26 18:29 | PDOC.CTH ---
Cardiology Progress Note - Subjective She is doing well. She had her FANG Cardioversion yesterday and has remained in sinus. - Objective Vital Signs Temp Pulse Pulse Pulse Resp BP BP 11/26/17 15:36 98 F 59 L 20 11/26/17 14:18 67 63 123/68 99/54 L 11/26/17 12:08 98 F 60 20 11/26/17 07:46 98.1 F 58 L 20 BP Pulse Ox Pulse Ox Pulse Ox 11/26/17 15:36 121/65 97 11/26/17 14:18 98 98 11/26/17 12:08 127/77 98 11/26/17 07:46 148/82 H 97 Weight 112 lb 4 oz 11/25/17 11/26/17 11/27/17 06:59 06:59 06:59 Intake Total 1014 1440 Output Total 2750 1400 Balance -1736 40 - Physical Examination General/Neuro: alert & oriented x3, NAD Neck: no JVD present Lungs: CTA, unlabored respirations Heart: RRR Abdomen: NT/ND Extremities: other: (no edema.) - Telemetry Telemetry Rhythm: NSR - Labs Result Diagrams: 11/26/17 04:20 11/26/17 04:20 Troponin/CKMB CK-MB (CK-2) 5.8 ng/mL (0-6.6) 11/19/17 14:35 Troponin I 0.184 ng/mL (< 0.028) H 11/19/17 20:41 - Assessment/Plan 1. New onset afib, in RVR 2. New onset dilated CM EF at 15-20% 3. HTN 4. Acute systolic heart failure, improved. 5. Elevated LFT's likely congestion from severe LV dysfunction. 6. Adenomyomatosis of the gallbladder. PLAN: - Difficult to rate control. Rocky plan on rhythm control. - FANG/Cardioversion tomorrow. - Full anticoagulation with Lovenox for stroke prophylaxis. - We spoke about risks and benefits of procedure and she agrees to proceed.
--- NOTE | 2017-11-26 18:31 | PDOC.CTH ---
Cardiology Progress Note - Subjective She had her FANG Cardioversion yesterday and has remained in sinus. - Objective Vital Signs Temp Pulse Pulse Pulse Resp BP BP 11/26/17 15:36 98 F 59 L 20 11/26/17 14:18 67 63 123/68 99/54 L 11/26/17 12:08 98 F 60 20 11/26/17 07:46 98.1 F 58 L 20 BP Pulse Ox Pulse Ox Pulse Ox 11/26/17 15:36 121/65 97 11/26/17 14:18 98 98 11/26/17 12:08 127/77 98 11/26/17 07:46 148/82 H 97 Weight 112 lb 4 oz 11/25/17 11/26/17 11/27/17 06:59 06:59 06:59 Intake Total 1014 1440 Output Total 2750 1400 Balance -1736 40 - Physical Examination General/Neuro: alert & oriented x3, NAD Neck: no JVD present Lungs: unlabored respirations Heart: RRR Abdomen: NT/ND Extremities: other: (no edema.) - Telemetry Telemetry Rhythm: NSR - Labs Result Diagrams: 11/26/17 04:20 11/26/17 04:20 Troponin/CKMB CK-MB (CK-2) 5.8 ng/mL (0-6.6) 11/19/17 14:35 Troponin I 0.184 ng/mL (< 0.028) H 11/19/17 20:41 - Assessment/Plan 1. New onset afib, back in sinus. 2. New onset dilated CM EF at 15-20% 3. HTN 4. Acute systolic heart failure, improved. 5. Elevated LFT's likely congestion from severe LV dysfunction. 6. Adenomyomatosis of the gallbladder. 7. Non ischemic CM. Mild CAD. PLAN: - Continue amiodarone. - Will switch lovenox to Eliquis. - On ACEI/BB. - Will need lifevest before discharge. - She will follow up with Patient Appointment Coordinator in the [place] area. - Home after lifevest fitted.
[2017-11-26] MEDS: Famotidine 20 MG TAB PO SCH (21:10)
[2017-11-26] MEDS: Apixaban 5 MG TAB PO SCH (21:10)
[2017-11-27 05:22] LABS: ALT (SGPT) 227 U/L (8-55); AST (SGOT) 36 U/L (5-34); Albumin 2.7 g/dL (3.4-4.8); Alkaline Phosphatase 73 U/L (40-150); Anion Gap 11 mmol/L (10-20); BUN (Urea Nitrogen) 23 mg/dL (9.8-20.1); Bilirubin, Total 1.1 mg/dL (0.2-1.2); Calc. Creatinine Clearance 32 mL/min (70-130); Calcium 8.4 mg/dL (7.8-10.44); Carbon Dioxide 25 mmol/L (23-31); Chloride 104 mmol/L (98-107); Estimated GFR-MDRD 55; Globulin 2.6 g/dL (2.4-3.5); Glucose 103 mg/dL (83-110); Potassium 4.7 mmol/L (3.5-5.1); Protein, Total 5.3 g/dL (6.0-8.3); Sodium 135 mmol/L (136-145)
[2017-11-27 05:28] LABS: Eosinophils 2 % (0-10); Hemoglobin 11.4 g/dL (12.0-16.0); Lymphocytes 28 % (21-51); MDiff Complete? YES; Mean Corpuscular HGB CONC 33.2 g/dL (32.0-36.0); Mean Corpuscular Hemoglobin 30.9 pg (27.0-31.0); Mean Corpuscular Volume 93.2 fl (81.0-99.0); Mean Platelet Volume 8.9 fL (7.4-10.4); Monocytes 14 % (0-10); Neutrophil 56 % (42-75); Platelet Count 199 thou/uL (130-400); RBC Distribution Width 14.9 % (11.5-14.5); Red Blood Cell (RBC) Count 3.68 mill/uL (4.20-5.40); White Blood Cell (WBC) Count 6.8 thou/uL (4.8-10.8)
[2017-11-27] MEDS: Aspirin 325 MG TAB PO SCH (09:18)
[2017-11-27] MEDS: Amiodarone 200 MG TAB PO SCH (09:18)
[2017-11-27] MEDS: Potassium Chloride 20 MEQ TAB PO SCH ×2 (09:18→17:43)
[2017-11-27] MEDS: Apixaban 5 MG TAB PO SCH ×2 (09:18→20:49)
[2017-11-27] MEDS: Carvedilol 6.25 MG TAB PO SCH ×2 (09:19→20:49)
[2017-11-27] MEDS: Furosemide 40 MG TAB PO SCH (09:19)
[2017-11-27] MEDS: Lisinopril 5 MG TAB PO SCH (09:19)
--- NOTE | 2017-11-27 13:43 | PDOC.CTH ---
Cardiology Progress Note - Subjective She is doing well. Her breathing is back to normal. - Objective Vital Signs Temp Pulse Pulse Pulse Resp BP BP 11/27/17 12:45 98.1 F 62 18 11/27/17 09:36 70 73 170/72 H 11/27/17 09:19 71 170/99 H 11/27/17 07:15 97.4 F L 71 16 11/27/17 04:00 98.9 F 65 20 BP BP BP Pulse Ox Pulse Ox Pulse Ox 11/27/17 12:45 131/78 97 11/27/17 09:36 137/66 97 99 11/27/17 09:19 11/27/17 07:15 170/99 H 98 11/27/17 04:00 148/89 H 96 Weight 102 lb 8 oz 11/26/17 11/27/17 11/28/17 06:59 06:59 06:59 Intake Total 1014 1940 Output Total 2750 2700 Balance -8579 -752 - Physical Examination General/Neuro: alert & oriented x3, NAD Neck: no JVD present Lungs: CTA, unlabored respirations Heart: RRR Abdomen: NT/ND Extremities: other: (no edema) - Telemetry Telemetry Rhythm: NSR - Labs Result Diagrams: 11/27/17 04:18 11/27/17 04:18 Troponin/CKMB CK-MB (CK-2) 5.8 ng/mL (0-6.6) 11/19/17 14:35 Troponin I 0.184 ng/mL (< 0.028) H 11/19/17 20:41 - Assessment/Plan 1. New onset afib, back in sinus. 2. New onset dilated CM EF at 15-20% 3. HTN 4. Acute systolic heart failure, improved. 5. Elevated LFT's likely congestion from severe LV dysfunction. 6. Adenomyomatosis of the gallbladder. 7. Non ischemic CM. Mild CAD. PLAN: - Continue amiodarone. - Will switch lovenox to Eliquis. - On ACEI/BB. - She has decide against lifevest set up. She is understands and verbalizes understanding of the implications of not going home in a lifevets including or severe dissability. - She will follow up with [facility] in the [place] area. - May be discharged home anytime. - Will sign of. Please call with any questions.
--- NOTE | 2017-11-27 20:23 | PDOC.PN ---
- Subjective Encounter Start Date: 11/27/17 Encounter Start Time: 15:00 Pt seen for followup re: CHF exacerbation. No new complaints. - Objective Resuscitation Status: Resuscitation Status FULL:Full Resuscitation Vital Signs & Weight: Vital Signs (12 hours) Temp Pulse Pulse Pulse Resp BP BP 11/27/17 20:00 99.0 F 71 18 11/27/17 15:50 98.2 F 74 18 11/27/17 12:45 98.1 F 62 18 11/27/17 09:36 70 73 170/72 H 11/27/17 09:19 71 170/99 H BP BP Pulse Ox Pulse Ox Pulse Ox 11/27/17 20:00 168/107 H 98 11/27/17 15:50 147/82 H 98 11/27/17 12:45 131/78 97 11/27/17 09:36 137/66 97 99 11/27/17 09:19 Weight Weight 102 lb 8 oz I&O: 11/26/17 11/27/17 11/28/17 06:59 06:59 06:59 Intake Total 1014 1940 Output Total 2750 2700 Balance -1736 -760 Result Diagrams: 11/27/17 04:18 11/27/17 04:18 Phys Exam - Physical Examination Constitutional: NAD HEENT: moist MMs Neck: supple Respiratory: clear to auscultation bilateral Cardiovascular: RRR Gastrointestinal: soft Neurological: moves all 4 limbs Psychiatric: normal affect Dx/Plan (1) Acute systolic ACC/AHA stage C congestive heart failure Code(s): I50.21 - ACUTE SYSTOLIC (CONGESTIVE) HEART FAILURE Status: Acute Comment: Change to oral lasix (2) Hepatic congestion Code(s): K76.1 - CHRONIC PASSIVE CONGESTION OF LIVER Status: Acute Comment: LFTs improving (3) Afib Code(s): I48.91 - UNSPECIFIED ATRIAL FIBRILLATION Status: Acute Comment: s/ p cardioversion, now in sinus rhythm (4) gall bladder mass Status: Acute Comment: followup with surgery as outpatient (5) HTN (hypertension) Code(s): I10 - ESSENTIAL (PRIMARY) HYPERTENSION Status: Chronic Qualifiers: Hypertension type: essential hypertension Qualified Code(s): I10 - Essential (primary) hypertension Comment: stable (6) Hyperthyroidism Code(s): E05.90 - THYROTOXICOSIS, UNSP WITHOUT THYROTOXIC CRISIS OR STORM Status: Chronic Comment: followup with PCP (7) Hypokalemia Code(s): E87.6 - HYPOKALEMIA Status: Resolved - Plan * . Review of Systems - Review of Systems Cardiovascular: negative: chest pain, palpitations, orthopnea, paroxysmal nocturnal dyspnea, edema, light headedness Gastrointestinal: negative: Nausea, Vomiting, Abdominal Pain, Diarrhea, Constipation, Melena, Hematochezia - Medications/Allergies Allergies/Adverse Reactions: Allergies Allergy/AdvReac Type Severity Reaction Status Date / Time No Allergy Information Allergy Verified 11/19/17 20:34 Available Medications: Current Medications Acetaminophen (Tylenol) 650 mg PO Q4H PRN PRN Reason: Headache/Fever or Pain Last Admin: 11/25/17 18:36 Dose: 650 mg Acetaminophen/Codeine Phosphate (Tylenol #3) 1 tab PO Q4H PRN PRN Reason: Mild Pain (1-3) Amiodarone HCl (Cordarone) 200 mg PO DAILY [facility] Last Admin: 11/28/17 08:23 Dose: 200 mg Apixaban (Eliquis) 5 mg PO BID [facility] Last Admin: 11/28/17 08:22 Dose: 5 mg Carvedilol (Coreg) 12.5 mg PO BID [facility] Last Admin: 11/28/17 08:22 Dose: 12.5 mg Famotidine (Pepcid) 20 mg PO Q24HR [facility] Last Admin: 11/27/17 20:49 Dose: 20 mg Furosemide (Lasix) 40 mg PO DAILY-AC [facility] Last Admin: 11/28/17 08:22 Dose: 40 mg Guaifenesin/Dextromethorphan (Robitussin Dm) 15 ml PO Q4H PRN PRN Reason: Cough Lisinopril (Zestril) 5 mg PO DAILY [facility] Last Admin: 11/28/17 08:23 Dose: 5 mg Potassium Chloride (K-Dur) 40 meq PO BID-WM [facility] Last Admin: 11/28/17 08:22 Dose: 40 meq Senna (Senokot) 2 tab PO HSPRN PRN PRN Reason: Constipation Last Admin: 11/21/17 08:36 Dose: 2 tab Tramadol HCl (Ultram) 50 mg PO Q6H PRN PRN Reason: Moderate Pain (4-6) Last Admin: 11/23/17 22:07 Dose: 50 mg
[2017-11-27] MEDS: Famotidine 20 MG TAB PO SCH (20:49)
--- NOTE | 2017-11-27 21:44 | DIS ---
DATE OF ADMISSION: 11/19/2017 DATE OF DISCHARGE: 11/27/2017 PRIMARY CARE PROVIDER: Unknown. DISCHARGE DIAGNOSES: 1. New-onset atrial fibrillation. 2. Congestive heart failure exacerbation. 3. Hepatic congestion. 4. Gallbladder polyp. 5. No significant CAD on cardiac catheterization. 6. Nonischemic cardiomyopathy. PROCEDURES DURING THIS HOSPITALIZATION: 1. A 2D echocardiogram on 11/21/2017, which showed left ventricular ejection fraction of 15-20%, atrial fibrillation during study, severe global hypokinesis , dilated right ventricle with reduced RV systolic function, biatrial enlargement, severe mitral regurgitation, severe tricuspid regurgitation, mild pulmonic regurgitation, and small sized pericardial effusion without tamponade. 2. Cardiac catheterization on 11/19/2017, which did not show any significant CAD. She had calcium around left main but not flow limiting. She also had luminal irregularities throughout right and left coronary systems, normal LVEDP , severely reduced left ventricular function, ejection fraction of 10-15% and LV to aortic gradient of 10 mmHg. 3. On 11/24/2017, she underwent transesophageal echocardiogram, which showed severely reduced LV systolic function, EF of 10-15% with dilated left ventricle , as well as a dilated right ventricle. 4. On 11/25/2017, patient underwent direct current cardioversion, synchronized. She had an abdominal ultrasound on 11/20/2017, which showed adenomyomatosis of the gallbladder with findings suspicious for an associated gallbladder mass. CONDITION OF PATIENT ON THE DAY OF DISCHARGE: Stable. I assessed Ms. Pelayo on the day of discharge. She denies any chest pain or shortness of breath. PHYSICAL EXAMINATION: VITAL SIGNS: Stable. HEART: S1 and S2 are heard, regular. LUNGS: Clear to auscultation bilaterally. CONSULTATIONS DURING THIS HOSPITALIZATION: Cardiology, Dr. Johnson and General Surgery, Dr. Mike. DISCHARGE MEDICATIONS: Amiodarone 200 mg daily, apixaban 5 mg 2 times a day, Coreg 12.5 mg 2 times a day, Lasix 40 mg daily, lisinopril 5 mg daily, and potassium chloride 10 mEq daily. HOSPITAL COURSE: Ms. Pelayo is a pleasant 72-year-old lady who was admitted to [facility] on 11/19/2017 for atrial fibrillation with rapid ventricular response as well as congestive heart failure exacerbation. She was also found to have abnormal liver function tests, likely from hepatic congestion. She was treated with diuretics as well as medications for rate control. She had abdominal ultrasound done, with findings as detailed above. She will need to follow up with a surgeon in 3 months' time for surgical options. Her anticoagulation will need to be held at that time. She was also seen by Cardiology service and underwent 2D echocardiogram, which showed cardiomyopathy. She went on to have cardiac catheterization, result as noted above. Following that, she underwent cardioversion after a FANG. She stayed in sinus rhythm following cardioversion. She has been started on anticoagulation. She has also been started on beta farhat and DAGO inhibitor. She is being discharged home on oral diuretics. She has been advised to set up care with a primary care provider for ongoing management of health issues. She will need her electrolytes and creatinine checked in approximately 7-10 days through her primary care provider's office. On the day of discharge, she has sodium 135, potassium 4.7, creatinine 1.17, AST 36, ALT 227, alkaline phosphatase 73, white count 6800, hemoglobin 11.4, and platelet count 199,000. During this hospitalization, she had a low TSH of 0.2839, elevated free T4 of 1.49 and a normal free T3 of 1.85. She reports that her primary care provider was following this frequently and she would follow up with her primary care provider for ongoing management. She was also recommended LifeVest. After discussion with cardiology service as well as with myself re: risks vs. benefits of LifeVest, she made an informed decision not to have LifeVest. Many thanks for allowing me to participate in Ms. Renteria' care. Please feel free to contact me with any questions or concerns. DISCHARGE DESTINATION: Home. TOTAL AMOUNT OF TIME SPENT COORDINATING THIS DISCHARGE: Thirty-five minutes. JERMAINE
[2017-11-28] MEDS ORDERED: Sodium Chloride 0.9% 10 ML ONE (07:52)
[2017-11-28] MEDS: Apixaban 5 MG TAB PO SCH (08:22)
[2017-11-28] MEDS: Potassium Chloride 20 MEQ TAB PO SCH (08:22)
[2017-11-28] MEDS: Carvedilol 6.25 MG TAB PO SCH (08:22)
[2017-11-28] MEDS: Furosemide 40 MG TAB PO SCH (08:22)
[2017-11-28] MEDS: Lisinopril 5 MG TAB PO SCH (08:23)
[2017-11-28] MEDS ORDERED: Amiodarone 200 MG TAB PO SCH (09:00)
[2017-11-28 12:27] VITALS: TEMP 98.9
[2017-11-28 12:54] VITALS: BP 142/76
--- NOTE | 2017-11-29 21:18 | ADD-DIS ---
DATE OF ADMISSION: 11/19/2017 DATE OF DISCHARGE: 11/28/2017 Please note that this summary is an addendum to the discharge summary I dictated on 11/27/2017. Ms. Renteria could not go home that day, because she did not have a ride to home. She spent the night in the hospital and is getting ready to leave on 11/28/2017. I assessed Ms. Renteria on the day of discharge. She denies any chest pain or shortness of breath. S he denies any fevers or chills. Vital signs are stable. S1 and S2 are heard, regular. Lungs are cl ear to auscultation bilaterally. Discharge diagnoses, procedures during this hospitalization, discharge medications, and hospital cour se are the same as dictated on the discharge summary dictated on 11/27/2017. DISCHARGE DESTINATION: Home. TOTAL AMOUNT OF TIME SPENT COORDINATING THIS DISCHARGE: 31 minutes.
== END 2017-11-28 15:55 | disposition home or self-care (01) | DRG 286 ==
LOC: ERS 13:47 → 2NO 17:58
PROVIDERS: ADMIT Internal Medicine; ATTEND Internal Medicine
PROC: 4A023N7 Measurement of Cardiac Sampling and Pressure, Left Heart, Percutaneous Approach (ICD-10-PCS; principal; 2017-11-23)
PROC: B2111ZZ Fluoroscopy of Multiple Coronary Arteries using Low Osmolar Contrast (ICD-10-PCS; 2017-11-23)
PROC: B2151ZZ Fluoroscopy of Left Heart using Low Osmolar Contrast (ICD-10-PCS; 2017-11-23)
PROC: 5A2204Z Restoration of Cardiac Rhythm, Single (ICD-10-PCS; 2017-11-25)
DX: I48.91 Unspecified atrial fibrillation (principal); I50.23 Acute on chronic systolic (congestive) heart failure; D68.9 Coagulation defect, unspecified; I31.3 Pericardial effusion (noninflammatory); I24.8 Other forms of acute ischemic heart disease; I42.0 Dilated cardiomyopathy; D13.5 Benign neoplasm of extrahepatic bile ducts; Z79.01 Long term (current) use of anticoagulants; K76.1 Chronic passive congestion of liver; E05.90 Thyrotoxicosis, unspecified without thyrotoxic crisis or storm; E87.6 Hypokalemia; K82.4 Cholesterolosis of gallbladder; I08.1 Rheumatic disorders of both mitral and tricuspid valves; I11.0 Hypertensive heart disease with heart failure
CPT/HCPCS: 36415; 36416; 71045; 76700; 80048; 80053; 80074; 80076; 82553; 83036; 83735; 83880; 84439; 84443; 84481; 84484; 85025; 85610; 85730; 92960; 93005; 93306; 93312; 93458; 93798; 96365; 96366; 96372; 96375; A4216; C1769; J0282; J1644; J1650; J1940; J2001; J2704; J3480; J7050; J7070